=== PATIENT | female | born 1955 | race African-American/Black ===

== ENCOUNTER 2016-07-08 09:08 | Emergency (ER) | payer MEDICARE, OTHER ==
[2014-06-13 20:54] VITALS: BP 202/101
[~2016-07-08 09:08] MED LIST: CIPR500T94 PO; DICL75TA PO; MAGN400O4 PO; METO100T2 PO; OXYC10TA PO; OXYC20TA34 PO; PRED20TA PO; hydrocodone PO; oxycontin PO
[2016-07-08] MEDS ORDERED: DEXAMETHASONE SOD PHOS 20 MG/5 ML VIAL. IM ONE (09:45)
[2016-07-08] MEDS ORDERED: KETOROLAC TROMETHAMINE 60 MG/2 ML SYRINGE. IM ONE (09:45)
[2016-07-08] MEDS ORDERED: DIPHENHYDRAMINE 50 MG/ML VIAL IM ONE (09:45)
--- NOTE | 2016-07-08 09:52 | PHYS DOC ---
Past Medical History Past Medical History: Diabetes-Type II, Hypertension Additional Past Medical Histor: obesity, chronic knee pain Past Surgical History: Tonsillectomy Additional Past Surgical Histo: D&C Alcohol Use: None Drug Use: None Adult General Chief Complaint Chief Complaint: SHOULDER INJURY HPI HPI Patient is a 61 year old female with history of hypertension who states she is in the ED for left shoulder pain moderate in nature worse on movement that began a month ago. Patient states she's had similar pain on and off intermittently for the last 2 or 3 years. Patient denies any known injury. Patient states she is scheduled to follow-up with the pain clinic for chronic pain including knee pain. Denies any pain radiating to the left upper extremity. Denies any chest pain or shortness of breath. She states she is here specifically to get something for her pain. She states she has a PCP will also f /u with the pain clinic in a month or so. She states it's been hard to get into the pain clinic. Patient denies neck pain though she states she has been told she has arthritis to her neck. Review of Systems Review of Systems Constitutional: Denies fever or chills [] Eyes: Denies change in visual acuity, redness, or eye pain [] HENT: Denies nasal congestion or sore throat [] Respiratory: Denies cough or shortness of breath [] Cardiovascular: No additional information not addressed in HPI [] GI: Denies abdominal pain, nausea, vomiting, bloody stools or diarrhea [] : Denies dysuria or hematuria [] Musculoskeletal: Left shoulder pain Integument: Denies rash or skin lesions [] Neurologic: Denies headache, focal weakness or sensory changes [] Endocrine: Denies polyuria or polydipsia [] Current Medications Current Medications Current Medications Medications (Trade) Dose Ordered Sig/Katia Start Time Stop Time Status Last Admin Dose Admin Dexamethasone Sodium Phosphate (Decadron) 10 mg 1X ONCE 07/08/16 09:45 07/08/16 09:46 DC 07/08/16 09:58 10 MG Diphenhydramine HCl (Benadryl) 25 mg 1X ONCE 07/08/16 09:45 07/08/16 09:46 DC 07/08/16 09:56 25 MG Ketorolac Tromethamine (Toradol Im) 60 mg 1X ONCE 07/08/16 09:45 07/08/16 09:47 DC 07/08/16 10:01 60 MG Allergies Allergies Allergies Coded Allergies Type Severity Reaction Last Updated Verified shellfish derived Allergy Severe Anaphylaxis 01/24/14 Yes ampicillin Allergy Intermediate Itching 01/24/14 Yes aspirin Allergy Intermediate 07/08/16 No Physical Exam Physical Exam Constitutional: Well developed, well nourished, no acute distress, non-toxic appearance. [] HENT: Normocephalic, atraumatic, bilateral external ears normal, oropharynx moist, no oral exudates, nose normal. [] Eyes: PERRLA, EOMI, conjunctiva normal, no discharge. [] Neck: Normal range of motion, no tenderness, supple, no stridor. [] Cardiovascular:Heart rate regular rhythm, no murmur [] Lungs & Thorax: Bilateral breath sounds clear to auscultation [] Abdomen: Bowel sounds normal, soft, no tenderness, no masses, no pulsatile masses. [] Skin: Warm, dry, no erythema, no rash. [] Back: No tenderness, no CVA tenderness. [] Extremities: Left shoulder with no obvious deformity. No tenderness on palpation of the left shoulder and cervical spine. Limited active range of motion especially abduction past 65 due to pain. Full passive range of motion including abduction and adduction. Adequate plantar flexion and dorsiflexion of the left forearm. Adequate medial radial and ulnar sensation to the left upper extremity. +2 left radial pulse. Cap refill less than 2 seconds the left upper extremity. Neurologic: Alert and oriented X 3, normal motor function, normal sensory function, no focal deficits noted. [] Psychologic: Affect normal, judgement normal, mood normal. [] Current Patient Data Vital Signs Vital Signs Date Time Temp Pulse Resp B/P Pulse Ox O2 Delivery O2 Flow Rate FiO2 07/08/16 09:22 98.2 58 14 161/77 98 Room Air 98.2 EKG EKG [] Radiology/Procedures Radiology/Procedures [] Course & Med Decision Making Course & Med Decision Making Pertinent Labs and Imaging studies reviewed. (See chart for details) Patient is in the ED with chronic left shoulder pain due to arthritis. She has had cervical and shoulder x-rays which she states showed she has arthritis. She has an appointment with a pain clinic as well as her PCP. She is currently requesting something to help her with her pain. Considering she has had x-rays of her neck and left shoulder which were positive for arthritis and has no known injury there is no benefit for another x -ray right now. We did an EKG to make sure this pain is not cardiac in origin. 10:[address] Ayala sinus rate them, heart rate 55, QRS interval 78, no STEMI She was discharged with Tylenol 3 and Flexeril. Since allergic to NSAIDs. She is to follow-up with the pain clinic as soon as possible. Dragon Disclaimer Dragon Disclaimer This electronic medical record was generated, in whole or in part, using a voice recognition dictation system. Departure Departure Impression: Primary Impression: Chronic left shoulder pain Disposition: HOME, SELF-CARE Condition: STABLE Referrals: NO PCP (PCP) Follow-up with the pain clinic, primary care doctor, or the orthopedic doctor provided in the next 7 days. Patient Instructions: Shoulder Pain, [id number] Additional Instructions: You were seen for ongoing left shoulder pain. Please consider following up with the pain clinic, orthopedic doctor provided, or primary care doctor. Ice and elevate the extremity. Return to the ED at any point symptoms worsen or you have other concerning symptoms. Scripts Cyclobenzaprine Hcl 10 Mg Tablet1 Tab PO TID #30 TAB Prov:ESPERANZA SANCHEZ APRN 07/08/16 Acetaminophen With Codeine (Tylenol With Codeine #3 Tablet)1 Each Tablet1 Tab PO PRN Q6HRS PRN PAIN #20 TAB Prov:ESPERANZA SANCHEZ APRN 07/08/16 ESPERANZA SANCHEZ APRN Jul 08, 2016 09:52
--- NOTE | 2016-07-08 10:22 | EKG ---
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
[2016-07-08] MEDS ORDERED: CYCL10TA2 PO (10:36)
[2016-07-08] MEDS ORDERED: ACET-704 PO (10:36)
== END 2016-07-08 10:46 | disposition home or self-care (01) ==
LOC: ER 09:08
DX: M25.512 Pain in left shoulder (principal); G89.29 Other chronic pain; E11.9 Type 2 diabetes mellitus without complications; I10 Essential (primary) hypertension; E66.9 Obesity, unspecified; Z88.6 Allergy status to analgesic agent; Z88.1 Allergy status to other antibiotic agents; Z91.013 Allergy to seafood
CPT/HCPCS: 93005; 96372; 99284; J1100; J1200; J1885

== ENCOUNTER 2016-09-05 07:43 | Emergency (ER) | payer MEDICARE, MEDICAID ==
[~2016-09-05 07:43] MED LIST changes: +ACET-704 PO; +CYCL10TA2 PO
--- NOTE | 2016-09-05 07:48 | PHYS DOC ---
Past Medical History Past Medical History: Diabetes-Type II, Hypertension Additional Past Medical Histor: obesity, chronic knee pain Past Surgical History: Hysterectomy, Tonsillectomy Additional Past Surgical Histo: D&C Alcohol Use: None Drug Use: None Adult General Chief Complaint Chief Complaint: Neck Pain [facility] HPI Patient is a 61 year old female who presents with neck pain. She states his been going on for over a week she has woke up one morning with left-sided neck pain. She denies any trauma to her neck such as car wrecks, falls or other concerns. She denies any fevers chills nausea vomiting or nuchal rigidity. She denies any numbness or tingling down her arms or legs. She states she's been trying take some Tylenol but that really hasn't helped her neck spasm. She states the muscle spasm starts in the left side of her neck and goes down to her left shoulder. She states when she pushes on it rubs on the muscle makes it feel better. She states she is off narcotic medicine for her knees because of all the abuse that other people are going through with a narcotics. Review of Systems Review of Systems Constitutional: Denies fever or chills [] Eyes: Denies change in visual acuity, redness, or eye pain [] HENT: Denies nasal congestion or sore throat [] Respiratory: Denies cough or shortness of breath [] Cardiovascular: No additional information not addressed in HPI [] GI: Denies abdominal pain, nausea, vomiting, bloody stools or diarrhea [] : Denies dysuria or hematuria [] Musculoskeletal: Denies back pain or joint pain, positive for left-sided neck pain. Integument: Denies rash or skin lesions [] Neurologic: Denies headache, focal weakness or sensory changes [] Endocrine: Denies polyuria or polydipsia [] Allergies Allergies Allergies Coded Allergies Type Severity Reaction Last Updated Verified shellfish derived Allergy Severe Anaphylaxis 01/24/14 Yes ampicillin Allergy Intermediate Itching 01/24/14 Yes aspirin Allergy Intermediate 07/08/16 No Physical Exam Physical Exam Constitutional: Well developed, well nourished, no acute distress, non-toxic appearance. [] HENT: Normocephalic, atraumatic, bilateral external ears normal, oropharynx moist, no oral exudates, nose normal. [] Eyes: PERRLA, EOMI, conjunctiva normal, no discharge. [] Neck: Normal range of motion, no tenderness, supple, no stridor. [] Cardiovascular:Heart rate regular rhythm, no murmur [] Lungs & Thorax: Bilateral breath sounds clear to auscultation [] Abdomen: Bowel sounds normal, soft, no tenderness, no masses, no pulsatile masses. [] Skin: Warm, dry, no erythema, no rash. [] Back: No tenderness, no CVA tenderness. No midline tenderness or step-offs, left sided neck pain with muscle spasm involvement. Extremities: No tenderness, no cyanosis, no clubbing, ROM intact, no edema. [] Neurologic: Alert and oriented X 3, normal motor function, normal sensory function, no focal deficits noted. [] Psychologic: Affect normal, judgement normal, mood normal. [] Current Patient Data Vital Signs Vital Signs Date Time Temp Pulse Resp B/P (MAP) Pulse Ox O2 Delivery O2 Flow Rate FiO2 09/05/16 07:53 98.5 80 20 97 Room Air 98.5 EKG EKG [] Radiology/Procedures Radiology/Procedures [] Impressions: Muscle spasm of neck Course & Med Decision Making Course & Med Decision Making Pertinent Labs and Imaging studies reviewed. (See chart for details) Physical exam and story is consistent with a muscle spasm of her neck. She has no midline tenderness or any history of falls or traumas. Will defer on x-rays or imaging at this time. Patient will be discharged with meloxicam and Valium. Patient is instructed not to drive while taking Valium. She is to follow-up with her primary care physician on Friday of next week. She's not to drink any alcohol while taking this. Return precautions given for fevers, altered mental status, worsening pain, numbness tingling stomach arm or legs. Patient's agreeable Plan B discharged in stable condition this time. Dragon Disclaimer Dragon Disclaimer This electronic medical record was generated, in whole or in part, using a voice recognition dictation system. Departure Departure Impression: Primary Impression: Neck muscle spasm Disposition: HOME, SELF-CARE Condition: STABLE Referrals: NO PCP (PCP) Patient Instructions: Muscle Cramps Additional Instructions: Being discharged meloxicam, and Valium. Please do not drive your car or drink alcohol while taking Valium as it can impair your judgment and make you sleepy. Valium will help relax your muscles. Please follow the instructions on the bottle. Return ER for high fevers, confusion, numbness or pain or weakness in your arms or legs, or you have any other concerns. Scripts Meloxicam (MOBIC) 7.5 Mg Tablet 1 TAB PO DAILY, #15 TAB 0 Refills Prov: BERRY VAUGHN MD 09/05/16 Diazepam (VALIUM) 5 Mg Tablet 5 MG PO TID Y for MUSCLE SPASMS, #20 TAB Prov: BERRY VAUGHN MD 09/05/16 BERRY VAUGHN MD September 05, 2016 07:47
[2016-09-05 07:53] VITALS: BP 190/108
[2016-09-05] MEDS ORDERED: MELO7.5T5 PO (08:11)
[2016-09-05] MEDS ORDERED: DIAZ5TAB PO (08:11)
== END 2016-09-05 08:29 | disposition home or self-care (01) ==
LOC: ER 07:43
DX: M62.838 Other muscle spasm (principal); E11.9 Type 2 diabetes mellitus without complications; I10 Essential (primary) hypertension; E66.9 Obesity, unspecified; G89.29 Other chronic pain; Z88.0 Allergy status to penicillin; Z88.6 Allergy status to analgesic agent; Z91.013 Allergy to seafood
CPT/HCPCS: 99283

== ENCOUNTER 2017-04-09 15:29 | Emergency (ER) | payer MEDICAID, MEDICARE ==
[~2017-04-09] VITALS: Ht 160 cm; Wt 99.8 kg
[~2017-04-09 15:29] MED LIST changes: +DIAZ5TAB PO; -MAGN400O4 PO; +MAGN400O7 PO; +MELO7.5T5 PO; -METO100T2 PO; +METO100T7 PO
[2017-04-09 16:25] LABS: BASO # 0.1 x10^3/uL (0.0-0.2); BASO % 1 % (0-3); EOS % 3 % (0-3); HEMATOCRIT 34.1 % (36.0-47.0); HEMOGLOBIN 11.2 g/dL (12.0-15.5); LYMPH # 1.6 x10^3/uL (1.0-4.8); LYMPH % 24 % (24-48); MEAN CORPUSCULAR HEMOGLOBIN 30 pg (25-35); MEAN CORPUSCULAR HGB CONC 33 g/dL (31-37); MEAN CORPUSCULAR VOLUME 91 fL (79-100); MONO % 8 % (0-9); NEUT % 65 % (31-73); PLATELET COUNT 216 x10^3/uL (140-400); RED BLOOD COUNT 3.74 x10^6/uL (3.50-5.40); RED CELL DISTRIBUTION WIDTH 13.1 % (11.5-14.5); WHITE BLOOD COUNT 6.7 x10^3/uL (4.0-11.0)
[2017-04-09 16:43] LABS: CALCIUM 8.9 mg/dL (8.5-10.1); POTASSIUM 3.6 mmol/L (3.5-5.1)
[2017-04-09 16:48] LABS: ALBUMIN 3.2 g/dL (3.4-5.0); ALBUMIN/GLOBULIN RATIO 0.8 (1.0-1.7); MAGNESIUM 1.6 mg/dL (1.8-2.4); TOTAL BILIRUBIN 0.7 mg/dL (0.2-1.0)
[2017-04-09] MEDS ORDERED: CONTRAST GIVEN MC PRN (17:00)
[2017-04-09] MEDS ORDERED: IOHEXOL 300 MG/ML 100ML VIAL. IV ONE (17:00)
[2017-04-09 17:15] VITALS: BP 187/97
--- NOTE | 2017-04-09 17:41 | RAD ---
PQRS Compliance Statement: One or more of the following individualized dose reduction techniques were utilized for this examination: 1. Automated exposure control 2. Adjustment of the mA and/or kV according to patient size 3. Use of iterative reconstruction technique CT abdomen/pelvis with contrast 04/09/2017 INDICATION: Right lower quadrant abdominal pain COMPARISON: None available TECHNIQUE: Multiple axial CT images of the abdomen and pelvis were obtained after the intravenous administration of 75 mL Omnipaque 300. Coronal and sagittal reformats are provided. FINDINGS: Lungs are clear. Heart size is within normal limits. 10 mm hypodense lesion in the left hepatic lobe suggestive of a hepatic cyst. There is an 8 mm hypodensity in the medial left hepatic lobe, suggestive of a hepatic cyst. There is a 4 mm hypodensity in anterior left hepatic lobe which is too small to characterize, however statistically favor to represent a simple cyst. The liver, bilateral adrenal glands, pancreas and gallbladder are normal in appearance. The abdominal aorta is normal in course and caliber with mild atherosclerotic calcifications. There are no pathologically enlarged lymph nodes in the abdomen or pelvis. There is no free intraperitoneal air. There is trace free fluid within the dependent portion of the pelvis. The kidneys enhance symmetrically. There is a 14 mm cyst in the midpole the left kidney. No suspicious renal mass. There is no hydronephrosis. Small large bowel are normal in caliber without evidence for bowel obstruction. Normal appendix is visualized. There is mild presacral edema. There is suggestion of wall thickening involving the rectum. Urinary bladder is within normal limits given degree of distention. No suspicious pelvic mass is identified. No adnexal masses are identified. There is a small left inguinal hernia containing fat. Mild degenerative changes of the sacroiliac joints are present. There is grade 1 anterolisthesis of L4 on L5. Moderate degenerative disc disease is noted at L5-S1. IMPRESSION: 1. Mild circumferential wall thickening involving the rectum with presacral edema. Findings may represent proctitis and correlation with patient's symptoms is recommended. Mild amount of fecal contents protocol. 2. Normal appendix is visualized. 3. Trace free fluid within the dependent portion of the pelvis may be physiologic. No suspicious adnexal mass is identified. 4. Simple appearing hepatic and renal cysts. Electronically signed by: Marly Hernandez MD (04/09/2017 5:39 PM) [facility]
[2017-04-09 18:52] LABS: BILIRUBIN,URINE NEGATIVE (NEG); GLUCOSE,URINE NEGATIVE (NEG); NITRITE,URINE NEGATIVE (NEG); PH,URINE 7.5; PROTEIN,URINE NEGATIVE (NEG-TRACE)
[2017-04-09] MEDS ORDERED: CEPH-264 PO (18:54)
[2017-04-09] MEDS ORDERED: HYDR25SU18 RC (18:54)
--- NOTE | 2017-04-09 18:54 | PHYS DOC ---
Past Medical History Past Medical History: Diabetes-Type II, Hypertension Additional Past Medical Histor: obesity, chronic knee pain Past Surgical History: Hysterectomy, Tonsillectomy Additional Past Surgical Histo: D&C Alcohol Use: Sober Drug Use: None Adult General Chief Complaint Chief Complaint: CONSTIPATION HPI HPI Patient is a 62 year old female presenting to the emergency department for evaluation of rectal pain and constipation that has been going on for approximately 4-5 days. She says that she has had some loose stools but she feels as if something is in her rectum. Patient has pain with bowel movements and a small amount of bleeding when she wipes. She has some lower abdominal tenderness on the right side intermittently but she denies any fevers chills nausea vomiting dysuria or abnormal vaginal bleeding or discharge. Review of Systems Review of Systems Constitutional: Denies fever or chills [] Respiratory: Denies cough or shortness of breath [] Cardiovascular: No additional information not addressed in HPI [] GI: + abdominal pain. No nausea, vomiting, bloody stools or diarrhea [] Neurologic: Denies headache, focal weakness or sensory changes [] All other systems were reviewed and found to be within normal limits, except as documented in this note. Current Medications Current Medications Current Medications Medications (Trade) Dose Ordered Sig/Katia Start Time Stop Time Status Last Admin Dose Admin Info (Do NOT chart on this entry -- for MONITORING) 1 each PRN DAILY PRN 04/09/17 17:00 04/09/17 19:57 DC Iohexol (Omnipaque 300 Mg/ml) 75 ml 1X ONCE 04/09/17 17:00 04/09/17 17:01 DC 04/09/17 17:19 75 ML Allergies Allergies Allergies Coded Allergies Type Severity Reaction Last Updated Verified shellfish derived Allergy Severe Anaphylaxis 01/24/14 Yes ampicillin Allergy Intermediate Itching 01/24/14 Yes aspirin Allergy Intermediate 07/08/16 No Physical Exam Physical Exam Constitutional: Well developed, well nourished, no acute distress, non-toxic appearance. [] Cardiovascular:Heart rate regular rhythm, no murmur [] Lungs & Thorax: Bilateral breath sounds clear to auscultation [] Abdomen: Bowel sounds normal, soft, no tenderness, no masses, no pulsatile masses. Rectal: No external hemorrhoids noted. Severe pain on internal exam with no blood, masses, or hemorrhoids noted. No fecal impaction. Skin: Warm, dry, no erythema, no rash. [] Back: No tenderness, no CVA tenderness. [] Extremities: No tenderness, no cyanosis, no clubbing, ROM intact, no edema. [] Neurologic: Alert and oriented X 3, normal motor function, normal sensory function, no focal deficits noted. [] Current Patient Data Vital Signs Vital Signs Date Time Temp Pulse Resp B/P (MAP) Pulse Ox O2 Delivery O2 Flow Rate FiO2 04/09/17 17:15 64 16 187/97 (127) 96 Room Air 04/09/17 15:45 98.7 98.7 Lab Values Laboratory Tests Test 04/09/17 16:15 04/09/17 18:44 White Blood Count 6.7 x10^3/uL (4.0-11.0) Red Blood Count 3.74 x10^6/uL (3.50-5.40) Hemoglobin 11.2 g/dL (12.0-15.5) L Hematocrit 34.1 % (36.0-47.0) L Mean Corpuscular Volume 91 fL (79-100) Mean Corpuscular Hemoglobin 30 pg (25-35) Mean Corpuscular Hemoglobin Concent 33 g/dL (31-37) Red Cell Distribution Width 13.1 % (11.5-14.5) Platelet Count 216 x10^3/uL (140-400) Neutrophils (%) (Auto) 65 % (31-73) Lymphocytes (%) (Auto) 24 % (24-48) Monocytes (%) (Auto) 8 % (0-9) Eosinophils (%) (Auto) 3 % (0-3) Basophils (%) (Auto) 1 % (0-3) Neutrophils # (Auto) 4.4 x10^3uL (1.8-7.7) Lymphocytes # (Auto) 1.6 x10^3/uL (1.0-4.8) Monocytes # (Auto) 0.5 x10^3/uL (0.0-1.1) Eosinophils # (Auto) 0.2 x10^3/uL (0.0-0.7) Basophils # (Auto) 0.1 x10^3/uL (0.0-0.2) Sodium Level 146 mmol/L (136-145) H Potassium Level 3.6 mmol/L (3.5-5.1) Chloride Level 107 mmol/L (98-107) Carbon Dioxide Level 29 mmol/L (21-32) Anion Gap 10 (6-14) Blood Urea Nitrogen 8 mg/dL (7-20) Creatinine 1.0 mg/dL (0.6-1.0) Estimated GFR (Cockcroft-Gault) 68.0 BUN/Creatinine Ratio 8 (6-20) Glucose Level 89 mg/dL (70-99) Calcium Level 8.9 mg/dL (8.5-10.1) Magnesium Level 1.6 mg/dL (1.8-2.4) L Total Bilirubin 0.7 mg/dL (0.2-1.0) Aspartate Amino Transferase (AST) 21 U/L (15-37) Alanine Aminotransferase (ALT) 14 U/L (14-59) Alkaline Phosphatase 71 U/L (46-116) Total Protein 7.0 g/dL (6.4-8.2) Albumin 3.2 g/dL (3.4-5.0) L Albumin/Globulin Ratio 0.8 (1.0-1.7) L Lipase 121 U/L (73-393) Urine Collection Type Unknown Urine Color Yellow Urine Clarity Clear Urine pH 7.5 Urine Specific [place] >=1.030 Urine Protein Negative mg/dL (NEG-TRACE) Urine Glucose (UA) Negative mg/dL (NEG) Urine Ketones (Stick) 15 mg/dL (NEG) Urine Blood Large (NEG) Urine Nitrite Negative (NEG) Urine Bilirubin Negative (NEG) Urine Urobilinogen Dipstick 1.0 mg/dL (0.2 mg/dL) Urine Leukocyte Esterase Small (NEG) Urine RBC 11-20 /HPF (0-2) Urine WBC 1-4 /HPF (0-4) Urine Squamous Epithelial Cells Mod /LPF Urine Amorphous Sediment Present /HPF Urine Bacteria Few /HPF (0-FEW) Laboratory Tests 04/09/17 16:15 Laboratory Tests 04/09/17 16:15 EKG EKG [] Radiology/Procedures Radiology/Procedures PQRS Compliance Statement: One or more of the following individualized dose reduction techniques were utilized for this examination: 1. Automated exposure control 2. Adjustment of the mA and/or kV according to patient size 3. Use of iterative reconstruction technique CT abdomen/pelvis with contrast 04/09/2017 INDICATION: Right lower quadrant abdominal pain COMPARISON: None available TECHNIQUE: Multiple axial CT images of the abdomen and pelvis were obtained after the intravenous administration of 75 mL Omnipaque 300. Coronal and sagittal reformats are provided. FINDINGS: Lungs are clear. Heart size is within normal limits. 10 mm hypodense lesion in the left hepatic lobe suggestive of a hepatic cyst. There is an 8 mm hypodensity in the medial left hepatic lobe, suggestive of a hepatic cyst. There is a 4 mm hypodensity in anterior left hepatic lobe which is too small to characterize, however statistically favor to represent a simple cyst. The liver, bilateral adrenal glands, pancreas and gallbladder are normal in appearance. The abdominal aorta is normal in course and caliber with mild atherosclerotic calcifications. There are no pathologically enlarged lymph nodes in the abdomen or pelvis. There is no free intraperitoneal air. There is trace free fluid within the dependent portion of the pelvis. The kidneys enhance symmetrically. There is a 14 mm cyst in the midpole the left kidney. No suspicious renal mass. There is no hydronephrosis. Small large bowel are normal in caliber without evidence for bowel obstruction. Normal appendix is visualized. There is mild presacral edema. There is suggestion of wall thickening involving the rectum. Urinary bladder is within normal limits given degree of distention. No suspicious pelvic mass is identified. No adnexal masses are identified. There is a small left inguinal hernia containing fat. Mild degenerative changes of the sacroiliac joints are present. There is grade 1 anterolisthesis of L4 on L5. Moderate degenerative disc disease is noted at L5-S1. IMPRESSION: 1. Mild circumferential wall thickening involving the rectum with presacral edema. Findings may represent proctitis and correlation with patient's symptoms is recommended. Mild amount of fecal contents protocol. 2. Normal appendix is visualized. 3. Trace free fluid within the dependent portion of the pelvis may be physiologic. No suspicious adnexal mass is identified. 4. Simple appearing hepatic and renal cysts. Electronically signed by: Berta Mcclelland MD (04/09/2017 5:39 PM) [facility] DICTATED and SIGNED BY: BERTA MCCLELLAND MD DATE: 04/09/17 1726 Course & Med Decision Making Course & Med Decision Making Labs normal, no s/s of concerning GI bleed. Patient has symptoms more consistent with proctitis. Patient denies anal intercourse. She is feeling much better after having BM here and she has repeat normal VS. Patient told to follow with GI and/or agriculture professor marlena and to come back to the ED with worsening pain, bleeding, fevers, vomiting, or other general concerns. Patient will be discharged with lidocaine jelly, annusol supp, keflex. Patient aware and agreeable with plan for DC and verbalized understanding of need for short term f/u and strict ED return precautions discussed as above. Dragon Disclaimer Dragon Disclaimer This electronic medical record was generated, in whole or in part, using a voice recognition dictation system. Departure Departure Impression: Primary Impression: Proctitis Disposition: HOME, SELF-CARE Condition: STABLE Referrals: AUDRA CORRAL MD (PCP) Patient Instructions: Proctitis Additional Instructions: TRY AND FOLLOW WITH A COLORECTAL SURGEON - [phone] - DR. OBRIEN Scripts Lidocaine/Prilocaine (LIDOCAINE-PRILOCAINE CREAM) 30 Gm Cream..g. 1 NARDA TP UD, #30 GM 1 Refill Prov: KADIE LYNCH DO 04/09/17 Cephalexin (KEFLEX) 500 Mg Capsule 1 CAP PO BID, #10 CAP Prov: KADIE LYNCH DO 04/09/17 Hydrocortisone Acetate (ANUSOL-HC) 25 Mg Supp.rect 1 SUPP RC BID, #10 SUPP Prov: KADIE LYNCH DO 04/09/17 KADIE LYNCH DO Apr 09, 2017 18:54
[2017-04-09] MEDS ORDERED: LIDO30CR TP (18:57)
[2017-04-09 19:09] LABS: BACTERIA,URINE FEW /HPF (0-FEW); SQUAMOUS EPITHELIAL CELL,UR MOD /LPF
== END 2017-04-09 19:49 | disposition home or self-care (01) ==
LOC: ER 15:29
DX: K62.89 Other specified diseases of anus and rectum (principal); K59.00 Constipation, unspecified; R10.30 Lower abdominal pain, unspecified; G89.29 Other chronic pain; I10 Essential (primary) hypertension; E11.9 Type 2 diabetes mellitus without complications; E66.9 Obesity, unspecified; Z68.39 Body mass index [BMI] 39.0-39.9, adult; Z88.1 Allergy status to other antibiotic agents; Z88.6 Allergy status to analgesic agent; Z91.013 Allergy to seafood
CPT/HCPCS: 36415; 74177; 80053; 81001; 83690; 83735; 85025; 87086; 99285; Q9967

== ENCOUNTER 2018-04-23 18:25 | Emergency (ER) | payer MEDICAID, MEDICARE, OTHER ==
[~2018-04-23] VITALS: Ht 162.6 cm; Wt 72.6 kg
[~2018-04-23 18:25] MED LIST changes: +CEPH-264 PO; +HYDR25SU18 RC; +LIDO30CR TP
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
[2018-04-23 19:46] LABS: BASO % 1 % (0-3); EOS % 1 % (0-3); HEMATOCRIT 37.2 % (36.0-47.0); HEMOGLOBIN 12.8 g/dL (12.0-15.5); LYMPH # 1.1 x10^3/uL (1.0-4.8); LYMPH % 26 % (24-48); MEAN CORPUSCULAR HEMOGLOBIN 33 pg (25-35); MEAN CORPUSCULAR HGB CONC 35 g/dL (31-37); MEAN CORPUSCULAR VOLUME 94 fL (79-100); MONO # 0.6 x10^3/uL (0.0-1.1); MONO % 13 % (0-9); NEUT # 2.6 x10^3uL (1.8-7.7); NEUT % 60 % (31-73); PLATELET COUNT 171 x10^3/uL (140-400); RED BLOOD COUNT 3.94 x10^6/uL (3.50-5.40); RED CELL DISTRIBUTION WIDTH 14.1 % (11.5-14.5); WHITE BLOOD COUNT 4.3 x10^3/uL (4.0-11.0)
[2018-04-23 19:56] LABS: PROTHROMBIN TIME PATIENT 14.7 SEC (11.7-14.0)
[2018-04-23 20:13] LABS: ACETAMIN < 10 mcg/ml (10-30); ETHANOL < 10 mg/dL (0-10); SALIC 5.5 mg/dL (2.8-20.0)
[2018-04-23 20:16] LABS: ALBUMIN 3.7 g/dL (3.4-5.0); CALCIUM 9.3 mg/dL (8.5-10.1); CREATININE 1.1 mg/dL (0.6-1.0); DIRECT BILIRUBIN 0.3 mg/dL (0.0-0.2); GFR 60.7; TOTAL BILIRUBIN 0.8 mg/dL (0.2-1.0); TOTAL PROTEIN 7.1 g/dL (6.4-8.2)
[2018-04-23 20:18] LABS: POTASSIUM 2.8 mmol/L (3.5-5.1)
[2018-04-23] MEDS ORDERED: POTA20TA82 PO (20:25)
[2018-04-23] MEDS ORDERED: POTASSIUM CHLORIDE 20 MEQ TABLET.ER. PO ONE (20:30)
[2018-04-23 20:40] VITALS: BP 163/79
[2018-04-23 21:07] LABS: BILIRUBIN,URINE MODERATE (NEG); CLARITY,URINE CLEAR; COLOR,URINE ORANGE; NITRITE,URINE NEGATIVE (NEG); PROTEIN,URINE 100 mg/dL (NEG-TRACE)
[2018-04-23 21:13] LABS: BARBITURATES NEG (NEG); BENZODIAZEPINES NEG (NEG); CANNABINOIDS POS (NEG); COCAINE POS (NEG); METHADONE NEG (NEG); OPIATES NEG (NEG); PHENCYCLIDINE NEG (NEG)
[2018-04-23 21:15] LABS: AMPHETAMINE/METHAMPHETAMINE NEG (NEG)
[2018-04-23 21:16] LABS: RBC,URINE OCC /HPF (0-2); WBC,URINE 20-40 /HPF (0-4)
[2018-04-23 21:17] LABS: BACTERIA,URINE MODERATE /HPF (0-FEW); SQUAMOUS EPITHELIAL CELL,UR MANY /LPF
--- NOTE | 2018-04-24 05:06 | EKG ---
[facility] [address] [place] [address] Test Date: 2018-04-23 Test Time: 18:51:47 Pat Name: KIMBER OLIVAS Department: Room: Gender: F [employer] Bever[employer] Director: : 1955 Requested By: JAZMINE VALDEZ Order Number: [id number] Reading MD: Measurements Intervals [place] Rate: 69 P: 74 MT: 138 QRS: 64 QRSD: 76 T: 56 QT: 404 QTc: 434 Interpretive Statements SINUS RHYTHM NORMAL ECG RI6.01 No previous ECG available for comparison
== END 2018-04-23 21:04 | disposition home or self-care (01) ==
LOC: ER 18:25
DX: F14.10 Cocaine abuse, uncomplicated (principal); E87.6 Hypokalemia; I10 Essential (primary) hypertension; E11.9 Type 2 diabetes mellitus without complications; G89.29 Other chronic pain; E66.9 Obesity, unspecified; Z68.27 Body mass index [BMI] 27.0-27.9, adult
CPT/HCPCS: 36415; 80048; 80076; 80307; 80329; 81001; 83735; 85025; 85610; 87086; 93005; 99284; G0480; G6039

== ENCOUNTER 2018-06-22 17:03 | Emergency (ER) | payer MEDICARE, OTHER ==
[~2018-06-22] VITALS: Ht 161.3 cm; Wt 72.6 kg
[~2018-06-22 17:03] MED LIST changes: +POTA20TA82 PO
[2018-06-22 19:17] LABS: BASO % 1 % (0-3); EOS # 0.1 x10^3/uL (0.0-0.7); EOS % 2 % (0-3); HEMATOCRIT 36.2 % (36.0-47.0); HEMOGLOBIN 12.1 g/dL (12.0-15.5); LYMPH # 1.2 x10^3/uL (1.0-4.8); LYMPH % 25 % (24-48); MEAN CORPUSCULAR HEMOGLOBIN 31 pg (25-35); MEAN CORPUSCULAR HGB CONC 33 g/dL (31-37); MEAN CORPUSCULAR VOLUME 93 fL (79-100); MONO # 0.3 x10^3/uL (0.0-1.1); MONO % 7 % (0-9); NEUT # 3.3 x10^3uL (1.8-7.7); NEUT % 66 % (31-73); PLATELET COUNT 190 x10^3/uL (140-400); RED BLOOD COUNT 3.88 x10^6/uL (3.50-5.40); RED CELL DISTRIBUTION WIDTH 14.1 % (11.5-14.5)
[2018-06-22 19:21] LABS: BILIRUBIN,URINE NEGATIVE (NEG); CLARITY,URINE CLEAR; COLOR,URINE YELLOW; NITRITE,URINE NEGATIVE (NEG); PH,URINE 5.5; PROTEIN,URINE NEGATIVE (NEG-TRACE)
[2018-06-22 19:26] LABS: CALCIUM 8.5 mg/dL (8.5-10.1); CREATININE 1.1 mg/dL (0.6-1.0); GFR 60.7; POTASSIUM 3.7 mmol/L (3.5-5.1)
[2018-06-22 19:27] LABS: BACTERIA,URINE FEW /HPF (0-FEW); RBC,URINE OCC /HPF (0-2); SQUAMOUS EPITHELIAL CELL,UR MOD /LPF
[2018-06-22 19:30] LABS: BARBITURATES NEG (NEG); BENZODIAZEPINES NEG (NEG); CANNABINOIDS NEG (NEG); COCAINE POS (NEG); METHADONE NEG (NEG); OPIATES NEG (NEG); PHENCYCLIDINE NEG (NEG)
[2018-06-22 19:31] LABS: ALBUMIN 3.3 g/dL (3.4-5.0); ALBUMIN/GLOBULIN RATIO 0.9 (1.0-1.7); TOTAL BILIRUBIN 0.3 mg/dL (0.2-1.0); TOTAL PROTEIN 7.1 g/dL (6.4-8.2)
[2018-06-22 19:32] LABS: AMPHETAMINE/METHAMPHETAMINE NEG (NEG)
[2018-06-22] MEDS ORDERED: IV 1/2 NORMAL SALINE 500 ML IV ONE (19:45)
--- NOTE | 2018-06-22 20:53 | PHYS DOC ---
Past Medical History Past Medical History: Hypertension, Other Additional Past Medical Histor: obesity, chronic knee pain Past Surgical History: Hysterectomy, Tonsillectomy Additional Past Surgical Histo: D&C Alcohol Use: Occasionally Drug Use: Cocaine, Other Adult General Chief Complaint Chief Complaint: PSYCH EVALUATION [facility] HPI Patient is a 63 year old female who presents with a desire for rehab for her crack cocaine use. She states that she is tired of using. She states she has had periods of sobriety before but always seems to relapse. She is requesting inpatient treatment. The patient also has chronic knee pain that she would like addressed. Review of Systems Review of Systems Constitutional: Denies fever or chills [] Eyes: Denies change in visual acuity, redness, or eye pain [] HENT: Denies nasal congestion or sore throat [] Respiratory: Denies cough or shortness of breath [] Cardiovascular: No additional information not addressed in HPI [] GI: Denies abdominal pain, nausea, vomiting, bloody stools or diarrhea [] : Denies dysuria or hematuria [] Musculoskeletal: See HPI Integument: Denies rash or skin lesions [] Neurologic: Denies headache, focal weakness or sensory changes [] Endocrine: Denies polyuria or polydipsia [] All other systems were reviewed and found to be within normal limits, except as documented in this note. Current Medications Current Medications Current Medications Medications (Trade) Dose Ordered Sig/Katia Start Time Stop Time Status Last Admin Dose Admin Clonidine HCl (Catapres) 0.1 mg 1X ONCE 06/22/18 21:00 06/22/18 21:01 DC 06/22/18 21:14 0.1 MG Sodium Chloride 500 ml @ 0 mls/hr 1X ONCE 06/22/18 19:45 06/22/18 19:46 DC 06/22/18 21:13 500 MLS/HR Allergies Allergies Allergies Coded Allergies Type Severity Reaction Last Updated Verified shellfish derived Allergy Severe Anaphylaxis 01/24/14 Yes ampicillin Allergy Intermediate Itching 01/24/14 Yes aspirin Allergy Intermediate 07/08/16 No Physical Exam Physical Exam Constitutional: Well developed, well nourished, no acute distress, non-toxic appearance. [] Cardiovascular:Heart rate regular rhythm, no murmur [] Lungs & Thorax: Bilateral breath sounds clear to auscultation [] Abdomen: Bowel sounds normal, soft, no tenderness, no masses, no pulsatile masses. [] Skin: Warm, dry, no erythema, no rash. [] Back: No tenderness, no CVA tenderness. [] Extremities: No tenderness, no cyanosis, no clubbing, ROM intact, no edema. [] Neurologic: Alert and oriented X 3, normal motor function, normal sensory function, no focal deficits noted. [] Psychologic: Affect normal, judgement normal, mood normal. [] Current Patient Data Vital Signs Lab Values Laboratory Tests Test 06/22/18 18:59 White Blood Count 5.0 x10^3/uL (4.0-11.0) Red Blood Count 3.88 x10^6/uL (3.50-5.40) Hemoglobin 12.1 g/dL (12.0-15.5) Hematocrit 36.2 % (36.0-47.0) Mean Corpuscular Volume 93 fL (79-100) Mean Corpuscular Hemoglobin 31 pg (25-35) Mean Corpuscular Hemoglobin Concent 33 g/dL (31-37) Red Cell Distribution Width 14.1 % (11.5-14.5) Platelet Count 190 x10^3/uL (140-400) Neutrophils (%) (Auto) 66 % (31-73) Lymphocytes (%) (Auto) 25 % (24-48) Monocytes (%) (Auto) 7 % (0-9) Eosinophils (%) (Auto) 2 % (0-3) Basophils (%) (Auto) 1 % (0-3) Neutrophils # (Auto) 3.3 x10^3uL (1.8-7.7) Lymphocytes # (Auto) 1.2 x10^3/uL (1.0-4.8) Monocytes # (Auto) 0.3 x10^3/uL (0.0-1.1) Eosinophils # (Auto) 0.1 x10^3/uL (0.0-0.7) Basophils # (Auto) 0.0 x10^3/uL (0.0-0.2) Urine Collection Type Unknown Urine Color Yellow Urine Clarity Clear Urine pH 5.5 Urine Specific [place] >=1.030 Urine Protein Negative mg/dL (NEG-TRACE) Urine Glucose (UA) Negative mg/dL (NEG) Urine Ketones (Stick) Negative mg/dL (NEG) Urine Blood Negative (NEG) Urine Nitrite Negative (NEG) Urine Bilirubin Negative (NEG) Urine Urobilinogen Dipstick 1.0 mg/dL (0.2 mg/dL) Urine Leukocyte Esterase Small (NEG) Urine RBC Occ /HPF (0-2) Urine WBC 5-10 /HPF (0-4) Urine Squamous Epithelial Cells Mod /LPF Urine Bacteria Few /HPF (0-FEW) Urine Mucus Mod /LPF Sodium Level 146 mmol/L (136-145) H Potassium Level 3.7 mmol/L (3.5-5.1) Chloride Level 108 mmol/L (98-107) H Carbon Dioxide Level 27 mmol/L (21-32) Anion Gap 11 (6-14) Blood Urea Nitrogen 18 mg/dL (7-20) Creatinine 1.1 mg/dL (0.6-1.0) H Estimated GFR (Cockcroft-Gault) 60.7 BUN/Creatinine Ratio 16 (6-20) Glucose Level 114 mg/dL (70-99) H Calcium Level 8.5 mg/dL (8.5-10.1) Total Bilirubin 0.3 mg/dL (0.2-1.0) Aspartate Amino Transferase (AST) 19 U/L (15-37) Alanine Aminotransferase (ALT) 16 U/L (14-59) Alkaline Phosphatase 99 U/L (46-116) Total Protein 7.1 g/dL (6.4-8.2) Albumin 3.3 g/dL (3.4-5.0) L Albumin/Globulin Ratio 0.9 (1.0-1.7) L Urine Opiates Screen Neg (NEG) Urine Methadone Screen Neg (NEG) Urine Barbiturates Neg (NEG) Urine Phencyclidine Screen Neg (NEG) Urine Amphetamine/Methamphetamine Neg (NEG) Urine Benzodiazepines Screen Neg (NEG) Urine Cocaine Screen Pos (NEG) Urine Cannabinoids Screen Neg (NEG) Urine Ethyl Alcohol Neg (NEG) Laboratory Tests 06/22/18 18:59 Laboratory Tests 06/22/18 18:59 Microbiology 06/22/18 Urine Culture - Final, Complete 06/22/18 Urine Culture Result 1 (YARELY) - Final, Complete EKG EKG [] Radiology/Procedures Radiology/Procedures [] Course & Med Decision Making Course & Med Decision Making Pertinent Labs and Imaging studies reviewed. (See chart for details) []The PAT team has arranged placement for the patient to receive a bed for rehab . The patient will be transported by cab. She is in agreement with this plan. The patient was given clonidine in the ED for elevated blood pressure. A prescription has been sent so she can continue the blood pressure medication at rehab. Dragon Disclaimer Dragon Disclaimer This electronic medical record was generated, in whole or in part, using a voice recognition dictation system. Departure Departure Impression: Primary Impression: Crack cocaine use Disposition: 01 HOME, SELF-CARE Condition: STABLE Referrals: AUDRA CORRAL MD (PCP) Patient Instructions: Drug Abuse, FAQs Additional Instructions: You will be taken to the rehabilitation facility by cab. Blood pressure medicine has been called into a pharmacy for you. Go directly to rehabilitation. If worsening return to the emergency department. PAT RUTLEDGE APRN Jun 22, 2018 20:53
[2018-06-22] MEDS ORDERED: cloNIDine HCL 0.1 MG TABLET PO ONE (21:00)
[2018-06-22 21:30] VITALS: BP 210/112
== END 2018-06-22 22:35 | disposition home or self-care (01) ==
LOC: ER 17:03
DX: F14.20 Cocaine dependence, uncomplicated (principal); I10 Essential (primary) hypertension; E66.9 Obesity, unspecified; Z68.27 Body mass index [BMI] 27.0-27.9, adult; G89.29 Other chronic pain; Z88.1 Allergy status to other antibiotic agents; Z88.6 Allergy status to analgesic agent; Z91.013 Allergy to seafood
CPT/HCPCS: 36415; 80053; 80307; 81001; 85025; 87086; 99283